=== PATIENT | female | born 1935 | race Hispanic/Latino ===

== ENCOUNTER 2018-03-14 08:24 | Emergency (ER) | payer MEDICARE, MEDICAID ==
[~2018-03-14] VITALS: Ht 160 cm; Wt 68.0 kg
--- NOTE | 2018-03-14 08:24 | NUR ---
ED Nurse Note: Pt is here for cold/ flu like symptoms x 3 days. Hx of dementia and depression. A + O x2. Pt denies any complaints of pain. Pt noted to have congestion and non productive cough. As per daughter, pt coughed yesterday and it was yellow phlegm. Algerian speaking. Skin warm to touch. No edema noted.
[2018-03-14 08:27] VITALS: BP 145/81
[2018-03-14] MEDS ORDERED: Sodium Chloride 500ML 500 ML IV ONE (08:35)
--- NOTE | 2018-03-14 08:39 | Emergency Room Report ---
History of Present Illness General Chief Complaint: Generalized Weakness Source: Family Member Present Illness HPI Patient is an 83-year-old female brought in by EMS after increased altered mental status. Patient had been having increased cough for the past 4 days. Patient was noted to have confused mental status this morning. Patient has been taking Robitussin as well as NyQuil. She had prior history of dementia and takes donepezil as well as an antidepressant. She had not been vomiting. She was noted to have some subjective weakness as well as chills. She had not been noted to be ambulatory as much as usual.Patient is normally ambulatory without assistance. She was noted to have increased right-sided tremor.Patient previous episode with a subarachnoid hemorrhage per old radiology reports Allergies: Coded Allergies: No Known Allergies (Verified , 08/27/07) Patient History Past Medical History: see triage record Reviewed Nursing Documentation: PMH: Agreed; PSxH: Agreed Nursing Documentation-PMH Past Medical History: No History, Except For Hx Hypertension: Yes History Of Psychiatric Problem: Yes - depression Hx Neurological Problems: Yes - dementia Review of Systems All Other Systems: limited - by mental status Physical Exam Vital Signs Date Time Temp Pulse Resp B/P (MAP) Pulse Ox O2 Delivery O2 Flow Rate FiO2 03/14/18 08:21 99.1 60 18 148/93 96 Room Air 03/14/18 08:27 97 Sp02 EP Interpretation: reviewed, normal General Appearance: alert, moderate distress, Chronically Ill Head: atraumatic, other - facial deviation to right Eyes: bilateral eye PERRL - 3mm to 2 mm ENT: normal ENT inspection, hearing grossly normal, normal voice Neck: normal inspection, full range of motion, supple, no bony tend Respiratory: normal inspection, no respiratory distress, no retraction, wheezing Cardiovascular #1: regular rate, rhythm, no edema Gastrointestinal: normal inspection, normal bowel sounds, non tender, soft, no guarding, no hernia Genitourinary: no CVA tenderness Musculoskeletal: normal inspection, back normal, normal range of motion Neurologic: alert, responsive, motor weakness - left upper extremity, other - upgoing toe to left side plantar reflex Psychiatric: normal inspection, judgement/insight normal, mood/affect normal Skin: normal inspection, normal color, no rash Procedures Critical Care Time Critical Care Time Patient had a critical medical condition which untreated could potentially result in life or limb threatening injury. Total critical care time excluding procedures approximately 45 minutes. Medical Decision Making Diagnostic Impression: Primary Impression: Intracerebral hemorrhage Additional Impressions: Dementia Viral respiratory illness ER Course Patient presented for altered mental status. Differential diagnosis include was not limited to CVA, subarachnoid hemorrhage, hypertensive crisis, among others. Because of complexity of patient's case laboratory testing and imaging studies were ordered. Patient is not noted to be on any anticoagulation. Patient had been noted to have a previous head injury approximately [address] the head read by radiology showed a large 5 cm parenchymal hemorrhage in the right frontal area. Patient was noted to have some right-sided head deviation as well as possible left-sided hemineglect. Patient was noted to have incomprehensible speech. She was noted to have intermittent cough. Patient was loaded with IV Keppra. CT findings were discussed with the patient's family member. Patient will be transferred for higher level of care to neurosurgical capable facility. Dr. Fermin from [facility] was contacted for further evaluation and treatment. Patient will be transferred for higher level care. Patient is currently in critical condition but will require higher level of care. At this time patient is able to protect her airway.Laboratory studies are notable for adequate platelet count as well as normal INR coagulation studies. Labs Test 03/14/18 08:50 03/14/18 09:00 White Blood Count 8.1 K/UL (4.8-10.8) Red Blood Count 5.15 M/UL (4.20-5.40) Hemoglobin 14.8 G/DL (12.0-16.0) Hematocrit 46.3 % (37.0-47.0) Mean Corpuscular Volume 90 FL (80-99) Mean Corpuscular Hemoglobin 28.8 PG (27.0-31.0) Mean Corpuscular Hemoglobin Concent 32.0 G/DL (32.0-36.0) Red Cell Distribution Width 12.3 % (11.6-14.8) Platelet Count 197 K/UL (150-450) Mean Platelet Volume 9.5 FL (6.5-10.1) Neutrophils (%) (Auto) 72.7 % (45.0-75.0) Lymphocytes (%) (Auto) 16.1 % (20.0-45.0) Monocytes (%) (Auto) 7.1 % (1.0-10.0) Eosinophils (%) (Auto) 1.9 % (0.0-3.0) Basophils (%) (Auto) 2.2 % (0.0-2.0) EKG Diagnostic Results Rate: normal Rhythm: NSR ST Segments: no acute changes Chest X-Ray Diagnostic Results Chest X-Ray Diagnostic Results : Chest X-Ray Ordered: Yes # of Views/Limited/Complete: 1 View Indication: Shortness of Breath EP Interpretation: Yes Interpretation: no consolidation, no effusion, no pneumothorax, no acute cardiopulmonary disease Impression: No acute disease Electronically Signed by: Electronically signed by Dr. Azael Brantley M.D. Last Vital Signs Date Time Temp Pulse Resp B/P (MAP) Pulse Ox O2 Delivery O2 Flow Rate FiO2 03/14/18 08:27 98.3 105 20 145/81 97 Room Air 03/14/18 08:27 97 Status: unchanged [facility] Condition: Critical Azael Brantley MD Mar 14, 2018 08:39
--- NOTE | 2018-03-14 08:40 | NUR ---
ED Nurse Note: Pt went down to Ct scan.
[2018-03-14] MEDS ORDERED: SERTRALINE HCL100 MG PO (08:43)
[2018-03-14] MEDS ORDERED: DONEPEZIL HCL5 M2 ORAL (08:43)
--- NOTE | 2018-03-14 08:49 | NUR ---
ED Nurse Note: Pt came back from CT scan.
[2018-03-14] MEDS ORDERED: levETIRAcetam 1,000mg/NS100ml 100 ML IVPB ONE (09:00)
--- NOTE | 2018-03-14 09:15 | Diagnostic Imaging Report ---
Indication: Altered mental status Technique: Continuous helical CT scanning of the head was performed utilizing automated exposure control without intravenous contrast material. Axial and coronal reconstructions were obtained. Comparison: 08/14/2014 CT dose: Total DLP 1382.52 mGycm; CTDI vol 70.38 mGy Findings: There is an acute intraparenchymal hemorrhage centered in the right frontal lobe measuring approximately 4.5 cm AP by 5 cm transverse and spanning approximately 5.6 cm craniocaudal. Extension of the hemorrhage is noted into the right basal ganglia. High attenuation material is also noted layering in the posterior horn of the right lateral ventricle consistent with intraventricular extension. There is local mass effect and edema, with local sulcal effacement in the right frontal lobe. No measurable midline shift at this time. The ventricles, sulci and cisterns are prominent, consistent with atrophy. Size of ventricles appears stable compared to the prior exam. There is periventricular and subcortical hypoattenuation most likely related to sequela of chronic microvascular ischemia. There is no effacement of the basal cisterns. The mastoid air cells are clear. Mucosal thickening is noted in some ethmoid air cells. Remainder the visualized paranasal sinuses appear clear. There is no depressed calvarial fracture. IMPRESSION: Large acute right-sided intraparenchymal hemorrhage with evidence of intraventricular extension as detailed above. Findings discussed with Dr. Brantley of the emergency department via telephone conversation approximately 8:58 AM on 03/14/[address] scanner at [facility] is accredited by the [employer] and the scans are performed using protocols designed to limit radiation exposure to as low as reasonably achievable to attain images of sufficient resolution adequate for diagnostic evaluation.
[2018-03-14 09:17] LABS: BASOPHILS % (AUTO) 2.2 % (0.0-2.0); EOSINOPHILS % (AUTO) 1.9 % (0.0-3.0); HEMATOCRIT 46.3 % (37.0-47.0); HEMOGLOBIN 14.8 G/DL (12.0-16.0); LYMPHOCYTES % (AUTO) 16.1 % (20.0-45.0); MEAN CORPUSCULAR VOLUME 90 FL (80-99); MONOCYTES % (AUTO) 7.1 % (1.0-10.0); NEUTROPHILS % (AUTO) 72.7 % (45.0-75.0); PLATELET COUNT 197 K/UL (150-450); RED BLOOD COUNT 5.15 M/UL (4.20-5.40); RED CELL DISTRIBUTION WIDTH 12.3 % (11.6-14.8); WHITE BLOOD COUNT 8.1 K/UL (4.8-10.8)
[2018-03-14 09:23] LABS: APPEARANCE,URINE SLIGHTLY CLOUDY; BILIRUBIN, URINE NEGATIVE (NEGATIVE); COLOR,URINE PALE YELLOW; GLUCOSE, URINE (UA) NEGATIVE (NEGATIVE); KETONES,URINE NEGATIVE (NEGATIVE); LEUKOCYTE ESTERASE ,URINE 1+ (NEGATIVE); NITRITE,URINE POSITIVE (NEGATIVE); PH,URINE 6 (4.5-8.0); PROTEIN,URINE NEGATIVE (NEGATIVE); UROBILINOGEN,URINE NORMAL MG/DL (0.0-1.0)
--- NOTE | 2018-03-14 09:23 | NUR ---
ED Nurse Note: Waiting for transport for pt.
[2018-03-14 09:28] LABS: ANION GAP 10 mmol/L (5-15); BLOOD UREA NITROGEN 8 mg/dL (7-18); CALCIUM 8.7 MG/DL (8.5-10.1); CARBON DIOXIDE 29 MMOL/L (21-32); CHLORIDE 104 MMOL/L (98-107); CREATININE 0.7 MG/DL (0.55-1.30); POTASSIUM 3.3 MMOL/L (3.5-5.1); SODIUM 143 MMOL/L (136-145)
--- NOTE | 2018-03-14 09:28 | NUR ---
ED Nurse Note: Pt has been suctioned. No acute distress noted. No pain noted.
[2018-03-14 09:34] LABS: ALANINE AMINOTRANSFERASE 23 U/L (12-78); ALBUMIN 3.8 G/DL (3.4-5.0); ALBUMIN/GLOBULIN RATIO 0.9 (1.0-2.7); ALKALINE PHOSPHATASE 70 U/L (46-116); ASPARTATE AMINO TRANSFERASE 30 U/L (15-37); BILIRUBIN,TOTAL 0.8 MG/DL (0.2-1.0)
[2018-03-14 09:37] VITALS: BP 134/92
--- NOTE | 2018-03-14 09:40 | NUR ---
ED Nurse Note: Pt asleep comfortably. Family at the bedside.
[2018-03-14] MEDS ORDERED: Ipratropium 0.02% Inh Soln 2.5ml UD HHN ONE (10:00)
[2018-03-14 10:03] VITALS: BP 118/74
--- NOTE | 2018-03-14 10:04 | NUR ---
ED Nurse Note: Pt has been transported to [facility]. Gave report to EMS Mora and telephone report to ANGÉLICA Borden from [facility]. Pt left with all of her belongings and family at the bedside. No acute distress or pain noted.
--- NOTE | 2018-03-14 11:11 | Diagnostic Imaging Report ---
Indication: Shortness of breath Technique: XRAY Chest 1v Comparison: 08/14/2014 Findings: Heart is mildly enlarged. Mediastinal contours are sharp. Atherosclerotic calcifications noted in the aorta. There is some shift trachea opacities at the medial right base which may be related to subsegmental atelectasis. Possibility of developing pneumonia not excludable. No pleural effusion or pneumothorax. There is osteopenia and degenerative change of the spine. No appreciable acute osseous abnormality Impression: Streaky opacities at the medial right base likely related to mild subsegmental atelectasis. Possibility of developing pneumonia should be excluded clinically. Stable borderline cardiomegaly. Osteopenia and multilevel degenerative change of the spine. Atherosclerotic disease.
--- NOTE | 2018-03-16 17:40 | Cardiology Report ---
APPROVED REPORT EKG Measurement Heart [id number] Normal sinus rhythm Normal ECG
== END 2018-03-14 10:05 | disposition short-term general hospital (02) ==
LOC: EDBD 08:24 → EMR 09:05
DX: I61.9 Nontraumatic intracerebral hemorrhage, unspecified (principal); F03.90 Unspecified dementia, unspecified severity, without behavioral disturbance, psychotic disturbance, mood disturbance, and anxiety; B34.9 Viral infection, unspecified; F32.9 Major depressive disorder, single episode, unspecified; I10 Essential (primary) hypertension
CPT/HCPCS: 36415; 70450; 71045; 80053; 81003; 83690; 83880; 85025; 85610; 85730; 86710; 86850; 86900; 86901; 87040; 87086; 87181; 93005; 96374; 99291; J1953